=== PATIENT | female | born 1940 | race Hispanic/Latino ===

== ENCOUNTER 2020-03-15 07:09 | Day surgery (SDC) | payer MEDICARE, MEDICAID ==
[~2020-03-15] VITALS: Ht 160 cm; Wt 62.1 kg
[~2020-03-15 07:09] MED LIST: CALCIUM + D600 MG PO; CYMBALTA30 MG PO; ESTRACE VAG0.1 MG/GM VA; FLONASE AL50 MCG/ACT; FLUOXETINE20 MG PO; LEVOTHYROXIN50 MCG PO; MONTELUKAST SOD10 MG PO; PROTONIX40 M2 PO; VITAMINS & PO; [UNRECOGNIZED DRUG - OTHER] PO
[2020-03-15 09:57] VITALS: BP 164/68
== END 2020-03-15 10:03 | disposition home or self-care (01) ==
LOC: ENDO 07:09 → PO 07:30 → ORM 07:30 → PO 08:00 → ORM 09:00 → ENDO 10:03
PROVIDERS: ATTEND Surgery
PROC: 0DB78ZX Excision of Stomach, Pylorus, Via Natural or Artificial Opening Endoscopic, Diagnostic (ICD-10-PCS; principal; 2020-03-15)
PROC: 0DJD8ZZ Inspection of Lower Intestinal Tract, Via Natural or Artificial Opening Endoscopic (ICD-10-PCS; 2020-03-15)
DX: K29.50 Unspecified chronic gastritis without bleeding (principal); K44.9 Diaphragmatic hernia without obstruction or gangrene; Z12.11 Encounter for screening for malignant neoplasm of colon; K57.30 Diverticulosis of large intestine without perforation or abscess without bleeding; Z11.59 Encounter for screening for other viral diseases
CPT/HCPCS: 43239; G0121